=== PATIENT | male | born 1990 | race Asian ===

== ENCOUNTER 2016-09-07 19:25 | Emergency (ER) | payer BC, OTHER ==
[~2016-09-07] VITALS: Ht 177.8 cm; Wt 75.0 kg
[2016-09-07 19:27] VITALS: BP 128/84
[2016-09-07] MEDS ORDERED: ONDANSETRON 2MG/ML, 2ML IVPush ONE (20:00)
[2016-09-07] MEDS ORDERED: HYDROmorphone 1 MG/ML, 1ML IVPush PRN (20:00)
[2016-09-07] MEDS ORDERED: SODIUM CHLORIDE FLUSH 10ML SYR IVF ONE (20:00)
[2016-09-07] MEDS ORDERED: HYDROmorphone 1 MG/ML, 1ML ONE (20:21)
[2016-09-07] MEDS ORDERED: HYDROmorphone 1 MG/ML, 1ML IM ONE (20:30)
== END 2016-09-07 21:45 | disposition home or self-care (01) ==
LOC: ED 21:20
DX: S43.004A Unspecified dislocation of right shoulder joint, initial encounter (principal); W21.07XA Struck by softball, initial encounter; Y93.64 Activity, baseball; Y92.89 Other specified places as the place of occurrence of the external cause; Y99.8 Other external cause status
CPT/HCPCS: 23650; 73020; 96372; 99284; J1170